=== PATIENT | female | born 2000 | race African-American/Black ===

== ENCOUNTER 2023-06-06 21:18 | Emergency (ER) | payer OTHER ==
[~2023-06-06 21:18] MED LIST: Iopamidol 370 76% 100 ML VIAL ONE
[2023-06-06 22:07] LABS: Bilirubin Negative (Negative); Blood, Urine Trace (Negative); Glucose, Urine (Dipstick) Negative (Negative); Ketone, Urine Negative (Negative); Leukocyte Moderate (Negative); Nitrite Negative (Negative); Protein, Urine (Dipstick) 30 mg/dL (Neg-Trace); Urobilinogen 0.2 mg/dL (Less than 2)
[2023-06-06 22:09] LABS: Pregnancy Test - Urine (BHCG) Negative (Negative)
[2023-06-06 22:10] LABS: Pregu Control Background? CLEAR/WHITE (CLR/WHITE); Pregu Control Bar Appear? YES (CONTROL BAR)
[2023-06-06 22:12] LABS: Bacteria/HPF Rare-Few HPF (None Seen); CAUTI Indications for Culture Pelvic or flank pain; Clarity Hazy (Clear); RBC/HPF 0-3 HPF (0-3); WBC/HPF 21-50 HPF (0-3)
[2023-06-06 22:13] LABS: Urine Culture Reflex Yes Yes
[2023-06-06] MEDS ORDERED: Ondansetron PF 4 MG/2 ML Vial ONE (22:27)
[2023-06-06] MEDS ORDERED: Morphine 4 MG/ML VIAL ONE (22:27)
[2023-06-06] MEDS ORDERED: Sodium Chloride 0.9% 500 ML ONE (22:27)
[2023-06-06] MEDS ORDERED: cefTRIAXone (ROCEPHIN) 1 GM VIAL ONE (22:27)
[2023-06-06 22:50] LABS: Anisocytosis SLIGHT = 6-15 cells (100X) (0-5/hpf); Eosinophils 1 % (0-10); Hematocrit 33.8 % (36.0-47.0); Hemoglobin 10.2 g/dL (12.0-16.0); Hypochromia SLIGHT = 6-15 cells (100X) (0-5/hpf); Lymphocytes 26 % (21-51); MDiff Complete? YES; Mean Corpuscular HGB CONC 30.1 g/dL (32.0-36.0); Mean Corpuscular Hemoglobin 21.9 pg (27.0-31.0); Mean Corpuscular Volume 72.7 fl (78.0-98.0); Mean Platelet Volume 8.1 fL (7.4-10.4); Microcytosis SLIGHT = 6-15 cells (100X) (0-5/hpf); Monocytes 3 % (0-10); Neutrophil 70 % (42-75); Platelet Adequacy Comment Appears Adequate; Platelet Count 440 10x3/uL (130-400); RBC Distribution Width 16.3 % (11.5-14.5); Red Blood Cell (RBC) Count 4.65 mill/uL (4.20-5.40); White Blood Cell (WBC) Count 11.1 10x3/uL (4.8-10.8)
[2023-06-06 22:56] LABS: ALT (SGPT) 30 U/L (8-55); AST (SGOT) 57 U/L (5-34); Albumin 4.1 g/dL (3.5-5.0); Alkaline Phosphatase 137 U/L (40-110); Anion Gap 19 mmol/L (10-20); BUN (Urea Nitrogen) 9 mg/dL (7.0-18.7); Bilirubin, Total 0.8 mg/dL (0.2-1.2); Calc. Creatinine Clearance 0 mL/min (70-130); Calcium 8.9 mg/dL (7.8-10.44); Carbon Dioxide 25 mmol/L (22-29); Chloride 106 mmol/L (98-107); Estimated GFR 104; Globulin 3.4 g/dL (2.4-3.5); Glucose 90 mg/dL (70-105); Lipase 67 U/L (8-78); Potassium 4.3 mmol/L (3.5-5.1); Protein, Total 7.5 g/dL (6.0-8.3); Sodium 146 mmol/L (136-145)
[2023-06-06] MEDS ORDERED: metroNIDAZOLE 500 MG/100 ML BAG ONE (23:43)
== END 2023-06-07 03:21 | disposition short-term general hospital (02) ==
LOC: MADERS 21:18
DX: K35.80 Unspecified acute appendicitis (principal)
CPT/HCPCS: 74177; 80053; 81001; 81025; 83605; 83690; 85025; 87086; 96365; 96367; 96375; J0696; J2270; J2405; J7030; Q9967

== ENCOUNTER 2023-12-11 20:20 | Emergency (ER) | payer OTHER, SELFPAY ==
[2023-12-11] MEDS ORDERED: Ketorolac Tromethamine 10 MG TAB ONE (20:41)
[2023-12-11] MEDS ORDERED: diphenhydrAMINE 25 MG CAP ONE (20:41)
[2023-12-11] MEDS ORDERED: Ondansetron ODT 4 MG TAB ONE (20:42)
== END 2023-12-11 20:48 | disposition home or self-care (01) ==
LOC: MADERS 20:20
DX: R51.9 Headache, unspecified (principal); E86.0 Dehydration; F17.210 Nicotine dependence, cigarettes, uncomplicated
CPT/HCPCS: 99283; Q0162

== ENCOUNTER 2024-08-30 14:28 | Emergency (ER) | payer OTHER | END 2024-08-30 15:22 | disposition home or self-care (01) | LOC: MADERS 14:28 | DX: O99.719 Diseases of the skin and subcutaneous tissue complicating pregnancy, unspecified trimester (principal); L91.0 Hypertrophic scar; L90.5 Scar conditions and fibrosis of skin; O99.330 Smoking (tobacco) complicating pregnancy, unspecified trimester; F17.210 Nicotine dependence, cigarettes, uncomplicated; F17.290 Nicotine dependence, other tobacco product, uncomplicated; Z3A.00 Weeks of gestation of pregnancy not specified | CPT/HCPCS: 99283 ==